=== PATIENT | female | born 1950 | race African-American/Black ===

== ENCOUNTER 2020-05-05 23:48 | Emergency (ER) | payer OTHER ==
[2020-05-06 00:22] VITALS: BP 138/71; PULSE 80; TEMP 97.8; BMI 27.4
[2020-05-06] MEDS ORDERED: NAPROXEN 500 MG TABLET PO ONE (00:28)
[2020-05-06] MEDS ORDERED: NAPROXEN 500 MG TABLET ONE (00:37)
== END 2020-05-06 00:48 | disposition home or self-care (01) ==
LOC: JER 23:48
DX: M54.5 Low back pain (principal)
CPT/HCPCS: 99283-25